=== PATIENT | male | born 1990 | race American Indian/Alaskan Native ===

== ENCOUNTER 2021-01-29 18:19 | Emergency (ER) | payer SELFPAY ==
[2021-01-29 18:49] VITALS: BP 122/80
[2021-01-29] MEDS ORDERED: LIDOCAINE-MPF (1%) 10 MG/1 ML VIAL 5 ML INFILTRATI ONE (19:06)
--- NOTE | 2021-01-29 19:11 | Emergency Department Report ---
- General Chief Complaint: Wound/Laceration Stated Complaint: CUT ON RIGHT INDEX FINGER Time Seen by Provider: 01/29/21 18:47 Source: patient Mode of arrival: Ambulatory Limitations: No Limitations - History of Present Illness Initial Comments: Patient is a 30-year-old male presents emergency room complaints of a laceration to the right index finger that occurred 1 hour prior to arrival. He states he accidentally cut himself with a straight razor. He is still able to move the finger. He denies any numbness or weakness. He states that initially there was bleeding but it improved upon placing gauze dressing. No past medical history. No allergies to medications. He states his tetanus immunization was in November 2020. - Related Data Home Medications Medication Instructions Recorded Confirmed Last Taken No Known Home Medications [No 01/29/21 01/29/21 Unknown Reported Home Medications] Allergies Allergy/AdvReac Type Severity Reaction Status Date / Time No Known Allergies Allergy Verified 01/29/21 18:45 ED Review of Systems ROS: Stated complaint: CUT ON RIGHT INDEX FINGER Other details as noted in HPI Comment: All other systems reviewed and negative ED Past Medical Hx - Past Medical History Previous Medical History?: No Hx Hypertension: No Hx CVA: No Hx Heart Attack/AMI: No Hx Congestive Heart Failure: No Hx Diabetes: No Hx Deep Vein Thrombosis: No Hx Pulmonary Embolism: No Hx GERD: No Hx Liver Disease: No Hx Renal Disease: No Hx of Cancer: No Hx Sickle Cell Disease: No Hx Arthritis: No Hx Headaches / Migraines: No Hx Seizures: No Hx Kidney Stones: No Hx Psychiatric Treatment: No Hx Asthma: No Hx COPD: No Hx Tuberculosis: No Hx Dementia: No Hx HIV: No - Surgical History Past Surgical History?: No Hx Coronary Stent: No Hx Open Heart Surgery: No Hx Pacemaker: No Hx Internal Defibrillator: No Hx Cholecystectomy: No Hx Appendectomy: No Hx Breast Surgery: No - Social History Smoking Status: Never Smoker Substance Use Type: None - Medications Home Medications: Home Medications Medication Instructions Recorded Confirmed Last Taken Type No Known Home Medications [No 01/29/21 01/29/21 Unknown History Reported Home Medications] ED Physical Exam - General Limitations: No Limitations General appearance: alert, in no apparent distress - Head Head exam: Present: atraumatic, normocephalic - Eye Eye exam: Present: normal appearance - ENT ENT exam: Present: mucous membranes moist - Extremities Exam Extremities exam: Present: other (1.5 cm laceration present to the right dorsal index finger, no active bleeding, no muscle/tendon involvement, no foreign body, FROM of the RUE, neurovascularly intact) - Neurological Exam Neurological exam: Present: alert, oriented X3 - Psychiatric Psychiatric exam: Present: normal affect, normal mood - Skin Skin exam: Present: warm, dry ED Course Vital Signs 01/29/21 01/29/21 01/29/21 18:40 18:47 18:48 Temperature 98.4 F 98.4 F Pulse Rate 78 80 Respiratory 20 16 16 Rate Blood Pressure 121/72 Blood Pressure 122/80 [Left] O2 Sat by Pulse 98 99 99 Oximetry - Laceration /Wound Repair Right Dorsal Finger Wound Location: upper extremity (right dorsal index finger) Wound Length (cm): 1 (1.5 cm total ) Wound's Depth, Shape: superficial Wound Explored: clean Irrigated w/ Saline (ccs): 100 Betadine Prep?: Yes Anesthesia: 1% Lidocaine Volume Anesthetic (ccs): 4 Wound Debrided: moderate Wound Repaired With: sutures Suture Size/Type: 3:0 Number of Sutures: 3 (ethilon ) Layer Closure?: No Sterile Dressing Applied?: Yes Progress: Verbal consent obtained by patient Wound irrigated with saline and thoroughly scrubbed with Betadine, 4 cc of 1% lidocaine without epinephrine used anesthetic, Betadine prep again, sterile drapes applied, sterile gloves worn, no muscle or tendon involvement, no foreign body, 3-0 Ethilon used for skin closure, 3 sutures placed, patient tolerated well, no complications, bleeding controlled, sterile dressing applied ED Medical Decision Making - Medical Decision Making Patient is a 30-year-old male presents emergency room complaints of a laceration to the right index finger that occurred 1 hour prior to arrival. He states he accidentally cut himself with a straight razor. He is still able to move the finger. He denies any numbness or weakness. He states that initially there was bleeding but it improved upon placing gauze dressing. No past medical history. No allergies to medications. He states his tetanus immunization was in November 2020. vitals are normal. on exam: 1.5 cm laceration present to the right dorsal index finger, no active bleeding, no muscle/tendon involvement, no foreign body, FROM of the RUE, neurovascularly intact. laceration repaired per procedure note without any complication. advised pt Please keep area clean, dry, covered. Wash with antibacterial soap and water pat dry. No hot tub, no pool, no soaking in water. Showering is fine. Sutures need to be removed in 10 to 14 days. Return to emergency room for new or worsening symptoms. Critical care attestation.: If time is entered above; I have spent that time in minutes in the direct care of this critically ill patient, excluding procedure time. ED Disposition Clinical Impression: Laceration of right index finger Qualifiers: Encounter type: initial encounter Damage to nail status: without damage Foreign body presence: without foreign body Qualified Code(s): S61.210A - Laceration without foreign body of right index finger without damage to nail, initial encounter Disposition: DC- TO HOME OR SELFCARE Is pt being admited?: No Does the pt Need Aspirin: No Condition: Stable Instructions: Laceration Care, Adult Additional Instructions: Please keep area clean, dry, covered. Wash with antibacterial soap and water pat dry. No hot tub, no pool, no soaking in water. Showering is fine. Sutures need to be removed in 10 to 14 days. Return to emergency room for new or worsening symptoms. Referrals: PRIMARY CARE, [Primary Care Provider] - 3-5 Days Forms: Work/School Release Form(ED) Time of Disposition: 19:10 Print Language: SYRIAC
== END 2021-01-29 19:30 | disposition home or self-care (01) ==
LOC: ED 18:19
DX: S61.210A Laceration without foreign body of right index finger without damage to nail, initial encounter (principal); Z79.899 Other long term (current) drug therapy; W26.8XXA Contact with other sharp object(s), not elsewhere classified, initial encounter; Y93.89 Activity, other specified; Y92.89 Other specified places as the place of occurrence of the external cause; Y99.8 Other external cause status
CPT/HCPCS: 99282

== ENCOUNTER 2021-02-07 07:16 | Emergency (ER) | payer SELFPAY ==
[2021-02-07 07:22] VITALS: BP 111/63
--- NOTE | 2021-02-07 10:00 | Emergency Department Report ---
Suture/Staple Removal - HPI Chief Complaint: Laceration/Recheck/Suture Stated Complaint: SUTURE REMOVAL Time Seen by Provider: 02/07/21 09:44 When Sutures or Zacarias Placed: 8-10 Days Ago Wound Location: Right index finger ED Review of Systems ROS: Stated complaint: SUTURE REMOVAL Other details as noted in HPI Comment: All other systems reviewed and negative Constitutional: denies: chills, fever Musculoskeletal: denies: arthralgia, myalgia Skin: other (laceration right index finger) ED Past Medical Hx - Past Medical History Previous Medical History?: Yes Hx Hypertension: No Hx CVA: No Hx Heart Attack/AMI: No Hx Congestive Heart Failure: No Hx Diabetes: No Hx Deep Vein Thrombosis: No Hx Pulmonary Embolism: No Hx GERD: No Hx Liver Disease: No Hx Renal Disease: No Hx Sickle Cell Disease: No Hx Arthritis: No Hx Headaches / Migraines: No Hx Seizures: No Hx Kidney Stones: No Hx Psychiatric Treatment: No Hx Asthma: No Hx COPD: No Hx Tuberculosis: No Hx Dementia: No Hx HIV: No - Surgical History Past Surgical History?: No Hx Coronary Stent: No Hx Open Heart Surgery: No Hx Pacemaker: No Hx Internal Defibrillator: No Hx Cholecystectomy: No Hx Appendectomy: No Hx Breast Surgery: No - Social History Smoking Status: Never Smoker Substance Use Type: None - Medications Home Medications: Home Medications Medication Instructions Recorded Confirmed Last Taken Type No Known Home Medications [No 01/29/21 01/29/21 Unknown History Reported Home Medications] Suture Removal Exam - Exam General: Vital signs noted. No distress. Alert and acting appropriately. Wound: Yes Tenderness (very mild, mainly around the wound to distal dorsal aspect right index finger), No Pathologic Erythema, No Drainage, No Pus, No Wound Dehiscence Other Systems: All other systems reviewed and are unremarkable. ED Course Vital Signs 02/07/21 07:21 Temperature 97.6 F Pulse Rate 59 L Respiratory 16 Rate Blood Pressure 111/63 O2 Sat by Pulse 98 Oximetry - Procedure Description Procedures done: Suture removal -- 3 sutures noted to wound located distal dorsal right index finger. Sutures removed using the instruments and the suture removal kit. No wound dehiscence. Wound healing well. No signs of infection. Patient tolerated procedure well without any complications. Critical care attestation.: If time is entered above; I have spent that time in minutes in the direct care of this critically ill patient, excluding procedure time. ED Disposition Clinical Impression: Visit for suture removal Disposition: DC-01 TO HOME OR SELFCARE Is pt being admited?: No Does the pt Need Aspirin: No Condition: Stable Instructions: Wound Closure Removal, Care After Additional Instructions: Continue to keep the wound clean with soap and water. Dry well after each cleaning and you can apply a thin layer of Neosporin after each cleaning and apply a Band-Aid. I would do this daily for another 4 to 5 days. Take Tylenol or ibuprofen as needed for pain. Follow-up with your primary care doctor as needed. Return to the ER if your symptoms changes or worsens in any way. Referrals: [facility] [Provider Group] - as needed Time of Disposition: 10:07
== END 2021-02-07 10:17 | disposition home or self-care (01) ==
LOC: ED 07:16
DX: Z48.02 Encounter for removal of sutures (principal); Z53.21 Procedure and treatment not carried out due to patient leaving prior to being seen by health care provider